=== PATIENT | female | born 1990 | race Caucasian/White ===

== ENCOUNTER 2021-09-25 11:45 | Emergency (ER) | payer MEDICARE, MEDICAID ==
[~2021-09-25] VITALS: Ht 165.1 cm; Wt 60.0 kg
[~2021-09-25 11:45] MED LIST: DIVA500T3 PO; LAMICTAL; TOPAMAX
[2021-09-25 11:49] VITALS: BP 138/74
== END 2021-09-25 13:00 | disposition left against medical advice (07) ==
LOC: ER 12:16
DX: G40.909 Epilepsy, unspecified, not intractable, without status epilepticus (principal); R03.0 Elevated blood-pressure reading, without diagnosis of hypertension
CPT/HCPCS: 99283